=== PATIENT | male | born 1960 | race Caucasian/White ===

== ENCOUNTER 2017-10-07 08:34 | Day surgery (SDC) | payer OTHER ==
[2017-10-07] MEDS: CYCLOPENTOLATE 0.2%/PHENYLEPHRINE 1% OPH SOLN 2 ML OS PRN ×4 (09:18→09:38)
[2017-10-07] MEDS: BESIFLOXACIN HCL 0.6% OPH SUSP 5 ML BOTTLE OS PRN ×5 (09:18→10:24)
[2017-10-07] MEDS: TROPICAMIDE 1% OPH SOLN 3 ML OS PRN ×4 (09:18→09:38)
[2017-10-07] MEDS: KETOROLAC TROMETHAMINE 0.45% 4 DROP/0.4 ML DROPERETTE OS PRN ×2 (09:19→09:20)
[2017-10-07] MEDS: TETRACAINE HCL 0.5% OPH SOLN 2 ML OS PRN ×4 (09:19→10:00)
[2017-10-07] MEDS ORDERED: MIDAZOLAM 2 MG/2 ML INJ ONE (09:43)
[2017-10-07] MEDS ORDERED: FENTANYL CITRATE INJ/PF 100 MCG/2 ML AMPUL ONE (09:44)
[2017-10-07] MEDS: LIDOCAINE 1% INJ-PF (10 MG/ML) 30 ML SDV ONE ×2 (10:12)
[2017-10-07] MEDS: CHONDR SU A NA/HYALUR INTRAOC KIT (SURGICARE) ONE ×2 (10:12)
[2017-10-07] MEDS: EPINEPHRINE INJ/PF 1 MG/1 ML AMPULE ONE ×2 (10:12)
--- NOTE | 2017-10-07 17:18 | [facility] OPERATIVE REPORT E ---
[facility] Operative Report NAME: OSVALDO ZELAYA AGE: 56Y DATE OF SURGERY: 10/07/2017 ROOM: PREOPERATIVE DIAGNOSIS: CATARACT, LEFT EYE. POSTOPERATIVE DIAGNOSIS: CATARACT, LEFT EYE. OPERATION: Cataract extraction with intraocular lens implant of the left eye. SURGEON: DHRUV SHEPHERD M.D. ANESTHESIA: Topical. PROCEDURE: After obtaining appropriate consent, the patient's left eye was prepped and draped in sterile fashion as well as the surgeon in a sterile manner and cataract surgery was started. First a paracentesis blade was used to make a small side-port incision. Viscoelastic was used to inflate the anterior chamber. Next a 2.4 mm incision was made with the paracentesis blade. A continuous capsulorrhexis incision was made using a cystotome and Utrata forceps. Following this hydrodissection was carried out to make the lens fully loose and mobile and it was rotated 90 degrees. Following this, a cwfopl-nhp-unomcsw technique was used to phacoemulsify the lens with a CDE of 34.0. The remaining cortex was removed with irrigation/aspiration. Provisc was instilled into the capsular bag to inflate the bag. A SN60WF, 18.5 diopter lens was placed. The remaining viscoelastic material was removed with irrigation/aspiration. Following this, a 10-0 nylon suture was used to close the incision and it was found to be watertight. Vigamox was instilled in the eye and a protective shield was placed over the eye. The patient returned to the postoperative recovery in stable condition. SURGEON: DHRUV SHEPHERD M.D. ANESTHESIA: @ TISSUE REMOVED OR ALTERED: @ PROCEDURE: @ DICTATING PHYSICIAN: DHRUV SHEPHERD M.D. [id number] [id number] PHY#: [id number] ID: [id number] JOB#: [id number] ACCT: [id number] cc:DHRUV SHEPHERD M.D. >
--- NOTE | 2017-10-07 17:18 | [facility] DISCHARGE SUMMARY E ---
[facility] Discharge Summary NAME: OSVALDO ZELAYA AGE: 56Y ADMITTED: 10/07/2017 DISCHARGED: 10/07/2017 HOSPITAL COURSE: This is a 56-year-old male who underwent cataract extraction of the left eye. DIAGNOSIS: CATARACT, LEFT EYE. INDICATIONS: He underwent surgery because he was having difficulty seeing to read or watch TV. DISCHARGE INSTRUCTIONS: He is to be on a regular diet; no bending at his waist; no heavy lifting; he is to use Besivance, Ilevro and Durezol at 3:00 p.m. and 8:00 p.m.; and, sleep with a rigid shield, and I will see him for his 1-day postoperative tomorrow. DICTATING PHYSICIAN: DHRUV SHEPHERD M.D. [id number] [id number] PHY#: [id number] ID: [id number] JOB#: [id number] ACCT: [id number] cc:DHRUV SHEPHERD M.D. >
== END 2017-10-07 11:03 | disposition home or self-care (01) ==
LOC: SC 08:34
PROVIDERS: ATTEND Internal Medicine
PROC: 08RK3JZ Replacement of Left Lens with Synthetic Substitute, Percutaneous Approach (ICD-10-PCS; principal; 2017-10-07 10:30)
DX: H25.13 Age-related nuclear cataract, bilateral (principal); I10 Essential (primary) hypertension; Z88.0 Allergy status to penicillin; Z79.899 Other long term (current) drug therapy
CPT/HCPCS: 66984; V2632; J2250; J3490 ×2; J0171; J3010; 142

== ENCOUNTER 2017-11-04 07:47 | Day surgery (SDC) | payer OTHER ==
[~2017-11-04 07:47] MED LIST: KETOROLAC TROMETHAMINE 0.45% 4 DROP/0.4 ML DROPERETTE OD PRN
[2017-11-04] MEDS ORDERED: CHONDR SU A NA/HYALUR INTRAOC KIT (SURGICARE) ONE (07:58)
[2017-11-04] MEDS ORDERED: EPINEPHRINE INJ/PF 1 MG/1 ML AMPULE ONE (07:58)
[2017-11-04] MEDS ORDERED: LIDOCAINE 1% INJ-PF (10 MG/ML) 30 ML SDV ONE (07:58)
[2017-11-04] MEDS: CYCLOPENTOLATE 0.2%/PHENYLEPHRINE 1% OPH SOLN 2 ML OD PRN ×3 (08:39→08:59)
[2017-11-04] MEDS: TROPICAMIDE 1% OPH SOLN 3 ML OD PRN ×3 (08:39→08:59)
[2017-11-04] MEDS: BESIFLOXACIN HCL 0.6% OPH SUSP 5 ML BOTTLE OD PRN ×4 (08:39→09:32)
[2017-11-04] MEDS: TETRACAINE HCL 0.5% OPH SOLN 2 ML OD PRN ×3 (08:40→09:12)
[2017-11-04] MEDS ORDERED: FENTANYL CITRATE INJ/PF 100 MCG/2 ML AMPUL ONE (09:02)
[2017-11-04] MEDS ORDERED: MIDAZOLAM 2 MG/2 ML INJ ONE (09:02)
[2017-11-04] MEDS ORDERED: ONDANSETRON HCL INJ/PF 4 MG/2 ML SDV ONE (09:03)
--- NOTE | 2017-11-04 20:14 | [facility] OPERATIVE REPORT E ---
[facility] Operative Report NAME: OSVALDO ZELAYA AGE: 56Y DATE OF SURGERY: 11/04/2017 ROOM: PREOPERATIVE DIAGNOSIS: CATARACT, RIGHT EYE. POSTOPERATIVE DIAGNOSIS: CATARACT, RIGHT EYE. OPERATION: Cataract extraction with intraocular lens implant of the right eye. SURGEON: DHRUV SHEPHERD M.D. ANESTHESIA: Topical. PROCEDURE: After obtaining appropriate consent, the patient's right eye was prepped and draped in sterile fashion as well as the surgeon in a sterile manner and cataract surgery was started. First a paracentesis blade was used to make a small side-port incision. Viscoelastic was used to inflate the anterior chamber. Next a 2.4 mm incision was made with the paracentesis blade. A continuous capsulorrhexis incision was made using a cystotome and Utrata forceps. Following this hydrodissection was carried out to make the lens fully loose and mobile and it was rotated 90 degrees. Following this, a inozqw-axu-klwlsql technique was used to phacoemulsify the lens with a CDE of 13.46. The remaining cortex was removed with irrigation/aspiration. Provisc was instilled into the capsular bag to inflate the bag. A SN60WF, 19.5 diopter lens was placed. The remaining viscoelastic material was removed with irrigation/aspiration. Following this, a 10-0 nylon suture was used to close the incision and it was found to be watertight. Vigamox was instilled in the eye and a protective shield was placed over the eye. The patient returned to the postoperative recovery in stable condition. DICTATING PHYSICIAN: DHRUV SHEPHERD M.D. [id number] 2011 PHY#: [id number] ID: [id number] JOB#: [id number] ACCT: [id number] cc:DHRUV SHEPHERD M.D. >
--- NOTE | 2017-11-04 20:19 | [facility] DISCHARGE SUMMARY E ---
[facility] Discharge Summary NAME: OSVALDO ZELAYA AGE: 56Y ADMITTED: 11/04/2017 DISCHARGED: 11/04/2017 HOSPITAL COURSE: This is a 56-year-old patient who underwent cataract extraction of the right eye. DIAGNOSIS: CATARACT, RIGHT EYE. She underwent surgery because she was having trouble with glare from headlights. DISCHARGE INSTRUCTIONS: She should be on a regular diet. No bending at her waist, no heavy lifting. She should use Besivance, Ilevro, and Durezol at 3 p.m. and 8 p.m. and sleep with a rigid shield. I will see her for her 1 day postoperative tomorrow. DICTATING PHYSICIAN: DHRUV SHEPHERD M.D. [id number] 2011 PHY#: [id number] ID: [id number] JOB#: [id number] ACCT: [id number] cc:DHRUV SHEPHERD M.D. >
== END 2017-11-04 10:04 | disposition home or self-care (01) ==
LOC: SC 07:47
PROVIDERS: ATTEND Internal Medicine
PROC: 08RJ3JZ Replacement of Right Lens with Synthetic Substitute, Percutaneous Approach (ICD-10-PCS; principal; 2017-11-04 09:30)
DX: H25.11 Age-related nuclear cataract, right eye (principal); Z96.1 Presence of intraocular lens; I10 Essential (primary) hypertension; Z79.899 Other long term (current) drug therapy
CPT/HCPCS: 66984; V2632; J2250; J3490 ×2; J0171; J3010; J2405; 142

== ENCOUNTER 2018-01-20 11:05 | Day surgery (SDC) | payer OTHER ==
[~2018-01-20 11:05] MED LIST changes: +DIPHENHYDRAMINE HCL 50 MG/ML VIAL ONE; +EPINEPHRINE INJ 1 MG/10 ML DISP.SYRIN ONE; +FENTANYL CITRATE INJ/PF 100 MCG/2 ML AMPUL ONE; +FLUMAZENIL INJ 0.5 MG/5 ML VIAL ONE; +GLUCAGON,HUMAN RECOMB 1 MG INJ ONE; -KETOROLAC TROMETHAMINE 0.45% 4 DROP/0.4 ML DROPERETTE OD PRN; +MIDAZOLAM 2 MG/2 ML INJ ONE; +NALOXONE HCL INJ/PF 0.4 MG/1 ML SDV ONE; +ONDANSETRON HCL INJ/PF 4 MG/2 ML SDV ONE
[2018-01-20] MEDS ORDERED: NALOXONE HCL INJ/PF 0.4 MG/1 ML SDV ONE (11:42)
[2018-01-20] MEDS ORDERED: DIPHENHYDRAMINE HCL 50 MG/ML VIAL ONE (11:42)
[2018-01-20] MEDS ORDERED: MIDAZOLAM 2 MG/2 ML INJ ONE ×2 (11:43)
[2018-01-20] MEDS ORDERED: EPINEPHRINE INJ 1 MG/10 ML DISP.SYRIN ONE (11:44)
[2018-01-20] MEDS ORDERED: FLUMAZENIL INJ 0.5 MG/5 ML VIAL ONE (11:44)
[2018-01-20] MEDS ORDERED: FENTANYL CITRATE INJ/PF 100 MCG/2 ML AMPUL ONE (11:44)
[2018-01-20] MEDS ORDERED: GLUCAGON,HUMAN RECOMB 1 MG INJ ONE (11:44)
[2018-01-20 13:04] VITALS: BP 116/61
--- NOTE | 2018-01-20 13:54 | Operative Report ---
Operative Report DATE OF SURGERY: 01/20/18 Operative Report: Risks, benefits and alternatives of the procedure including risks of bleeding, perforation requiring surgery are explained to the patient in detail and informed consent is obtained. Patient is brought back to the endoscopy suite and placed in the left, lateral decubital position. Timeout was called. Conscious sedation medications are provided. A rectal examination is done which did not reveal any masses, tears or fissures. An Olympus videoscope was inserted into the patient's rectum. The scope was then carefully advanced all the way to the cecum. The cecum was identified by the usual anatomical landmarks including the ileocecal valve as well as the appendiceal office. Photodocumentation is obtained. The scope was then sequentially pulled back via the various segments of the colon including the ascending colon, hepatic flexure, transverse colon, splenic flexure, descending colon and finally into the rectosigmoid portions of the colon. Retroflexion maneuver is performed. PREOPERATIVE DIAGNOSIS: Personal history of polyps POSTOPERATIVE DIAGNOSIS: 2 sessile polyps that I removed via snare polypectomy and retrieved. Diverticulosis. Internal hemorrhoids OPERATION: Colonoscopy with snare polypectomy. Colonoscopy with biopsy SURGEON: ASHA MEJIA ANESTHESIA: Moderate Sedation - 6 mg of Versed, 100 mcg of fentanyl. Conscious sedation monitoring time 30 minutes. TISSUE REMOVED OR ALTERED: As noted above. COMPLICATIONS: None. ESTIMATED BLOOD LOSS: None. INTRAOPERATIVE FINDINGS: As noted above. PROCEDURE: Patient tolerated the procedure well. No immediate postprocedure complications are noted. Patient discharged in good condition. Discharge diet: Regular. Discharge activity: Regular. Discharge date 01/20/2018 We will wait on the pathology. Patient is instructed to call the office or proceed to the emergency room should there be any further problems or questions. Surveillance colonoscopy in the next 1-2 years.
== END 2018-01-20 13:00 | disposition home or self-care (01) ==
LOC: END 11:05
PROVIDERS: ATTEND Internal Medicine Gastroenterology
DX: Z12.11 Encounter for screening for malignant neoplasm of colon (principal); K64.8 Other hemorrhoids; K57.30 Diverticulosis of large intestine without perforation or abscess without bleeding; K52.9 Noninfective gastroenteritis and colitis, unspecified; D12.5 Benign neoplasm of sigmoid colon; K63.89 Other specified diseases of intestine; E78.5 Hyperlipidemia, unspecified; I10 Essential (primary) hypertension; Z79.899 Other long term (current) drug therapy; Z88.0 Allergy status to penicillin
CPT/HCPCS: 45380; 45385; 88305 ×2; J2250; J0171; J3010; J1200; J1610; J2310; J2405; J3490